=== PATIENT | female | born 1940 | race Caucasian/White ===

== ENCOUNTER → 2016-06-24 | Outpatient (CLI) | payer MEDICARE, OTHER ==
[~2016-06-24] MED LIST: ALEN70TA2 PO; AML2.5T PO; BECL8.7A5 IH; CALC500T55 PO; HCTZ12.5T PO; MULT-954 PO; NF-FLON16G NS
== END ==
LOC: LAB 08:56
PROVIDERS: ATTEND Internal Medicine
DX: Z01.818 Encounter for other preprocedural examination (principal)
CPT/HCPCS: 36415; 84132; 85014; 85018

== ENCOUNTER → 2016-09-07 | Outpatient (CLI) | payer MEDICARE, OTHER ==
[2016-09-07 08:19] LABS: BASOPHILS % (AUTO) 1 % (0-2); EOSINOPHILS # (AUTO) 0.2 10^3uL; EOSINOPHILS % (AUTO) 3 % (0-4); LYMPHOCYTES # (AUTO) 0.9 X10^3; MEAN CORPUSCULAR HEMOGLOBIN 28.2 PG (26.0-34.0); MEAN CORPUSCULAR HGB CONC 32.5 g/dL (31.0-37.0); MEAN CORPUSCULAR VOLUME 87 FL (80-100); MEAN PLATELET VOLUME 9.1 FL (6.0-9.5); MONOCYTES # (AUTO) 0.9 X10^3; MONOCYTES % (AUTO) 11 % (3-11); NEUTROPHILS # (AUTO) 5.7 X10^3; NEUTROPHILS % (AUTO) 74 % (51-67); PLATELET COUNT 390 10^3uL (150-450)
[2016-09-07 08:37] LABS: ALBUMIN 3.8 g/dL (3.4-5.0); TOTAL PROTEIN 7.6 g/dL (6.4-8.5)
== END ==
LOC: LAB 08:06
PROVIDERS: ATTEND Internal Medicine
DX: Z00.00 Encounter for general adult medical examination without abnormal findings (principal); I10 Essential (primary) hypertension; J47.9 Bronchiectasis, uncomplicated; E03.8 Other specified hypothyroidism; M81.0 Age-related osteoporosis without current pathological fracture
CPT/HCPCS: 36415; 80053; 80061; 82306; 84439; 84443; 85025

== ENCOUNTER → 2016-10-14 | Outpatient (CLI) | payer MEDICARE, OTHER ==
--- NOTE | 2016-10-14 13:17 | Diagnostic Imaging Report ---
INDICATION: A 76-year-old postmenopausal female for screening osteoporosis. COMPARISON: 09/15/2015. TECHNIQUE: DEXA of the lumbar spine and bilateral hips was performed. FINDINGS: The L1-L4 vertebrae were used for assessment of the lumbar spine. The bone mineral density for the total lumbar spine is 1.086 g/cm2, and the T score is -0.8, and Z-score is 1.9. The left femoral neck has a bone density of 0.593 g/cm2, and the T score is -3.2, and Z-score is -0.8. The right femoral neck has a bone density of 0.604 g/cm2, and the T score is -3.1, and Z-score is -0.7. Since prior examination, there has been no statistically significant change in the bone mineral density of the total hips or lumbar spine. Degenerative dextroscoliosis of the lumbar spine is again noted and therefore the lumbar spine is likely not optimal for evaluation of the bone mineral density. IMPRESSION: 1. Osteoporosis. 2. No significant change in bone mineral density since prior examination of 2015. 3. Recommend followup DEXA in 12 months to assess response to therapy. Dictated by: Dictated on workstation # [id number]
== END ==
LOC: RAD 08:59
PROVIDERS: ATTEND Internal Medicine
DX: M81.0 Age-related osteoporosis without current pathological fracture (principal)
CPT/HCPCS: 77080